=== PATIENT | female | born 2000 | race African-American/Black ===

== ENCOUNTER 2021-12-17 12:18 | Emergency (ER) | payer OTHER, SELFPAY ==
[2021-12-17 12:24] VITALS: BP 132/76; PULSE 90; RESP 16; TEMP 36.6; O2SAT 100
[2021-12-17 13:20] VITALS: RESP 18; O2SAT 98
--- NOTE | 2021-12-17 13:25 | PC.NURSE ---
patient states that she slept most of the day yesterday. denies eating anything out of the ordinary and no new medications. states she woke up feeling a little congested and puffy. I may have allergies, I don't know
[2021-12-17] MEDS: methylPREDNISolone SOD SUCC 125 MG VIAL IV PUSH (13:49)
[2021-12-17] MEDS: SODIUM CHLORIDE 0.9% IV 1,000 ML 999 ML IV CONT (13:49)
[2021-12-17] MEDS: LORATADINE 10 MG TABLET PO (13:49)
[2021-12-17] MEDS: FAMOTIDINE 20 MG/2 ML VIAL IV PUSH (13:49)
[2021-12-17] MEDS: diphenhydrAMINE HCl INJ 50 MG/ML VIAL 25 MG IV PUSH (13:49)
--- NOTE | 2021-12-17 14:52 | ED.ALLEREA ---
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 Patient states she is seen previously for the same issues and was told she was allergic to the cat. Patient has not had any contact with a cat. Today patient was driving when she started itching her left arm and then noted the hives. This was about 1030 this morning at time of assessment patient states she is doing better but still feels like she is short of breath and is having problems swallowing. Patient speaking in full sentences without difficulty. Patient denies any new soaps, lotions, foods, or detergents. Patient does not take any medications on a daily basis. Related Data Allergies Allergy/AdvReac Type Severity Reaction Status Date / Time No Known Allergies Allergy Verified 12/17/21 13:20 Review of Systems Review of Systems: CONSTITUTIONAL: Denies fever, chills, or sweats. EYES: Denies visual changes, redness, or discharge. ENT: Denies rhinorrhea, congestion, sore throat, or otalgia. CARDIOVASCULAR: Denies chest pain, palpitations, or edema. RESPIRATORY: Dyspnea. denies cough or dyspnea. GASTROINTESTINAL: Denies abdominal pain, nausea, vomiting, or diarrhea. GENITOURINARY: Denies dysuria or hematuria. SKIN: Hives. MUSCULOSKELETAL: Denies back pain, joint pain, or myalgia. NEUROLOGIC: Denies headache, numbness, dizziness, or weakness. PSYCHIATRIC: Denies anxiety or depression. Exam Narrative: GENERAL: Well-appearing, well-nourished, and in no acute distress. HEAD: Normocephalic, atraumatic. EYES: PERRLA and EOMI. ENT: Nares clear, no rhinorrhea or epistaxis. Mucous membranes moist. Oropharynx without tonsillar hypertrophy exudate or other lesions. No pharyngeal edema noted. Bilateral TMs pearly zabala nonbulging NECK: Supple. No adenopathy or masses. No carotid bruits or JVD CHEST: Clear to auscultation. No respiratory distress. No wheezes rales or rhonchi HEART: Regular rate and rhythm. No murmur heard. Normal peripheral pulses. ABDOMEN: Soft, nontender, nondistended, normal active bowel sounds. EXTREMITIES: Normal range of motion. No edema. SKIN: wheels noted to left arm. Warm, dry, no rash. NEURO: No focal deficits. Alert and oriented x3. PSYCH: Normal mood and affect. Course Course Emergency Course: Patient with noted improvement after IV medications. Patient denies shortness of breath, difficulty swallowing after medications. Patient ready to be discharged home. Patient be discharged home on oral steroids, Zyrtec, and Pepcid. Instructed to follow-up with primary for possible referral to veterinary medicine scientist. Vital Signs Vital signs: Vital Signs Temperature 36.6 C 12/17/21 12:24 Pulse Rate 90 12/17/21 12:24 Respiratory Rate 16 12/17/21 12:24 Blood Pressure 132/76 12/17/21 12:24 Pulse Oximetry 100 12/17/21 12:24 Temperature 36.6 C 12/17/21 12:24 Pulse Rate 64 12/17/21 15:16 Respiratory Rate 14 12/17/21 15:16 Blood Pressure 135/82 12/17/21 15:16 Pulse Oximetry 100 12/17/21 15:16 MDM - Allergic Reaction Differential Diagnosis Differential diagnosis: Likely anaphylaxis, allergic reaction and urticaria Medical Records Attestation: I reviewed the patient's medical records. Discharge Plan Discharge Clinical Impression: Urticaria, Allergic reaction Patient Disposition: Home, Self-Care Condition: Improved Instructions: Antibiotic Form, Urticaria (ED), Allergies (ED) Additional Instructions: Take medications as prescribed. Follow-up with primary for possible referral to an veterinary medicine scientist. Return with any new or worsening symptoms. Prescriptions: New prednisone 50 mg tablet 50 mg
[2021-12-17] MEDS: ONDANSETRON INJ 4 MG/2 ML VIAL IV PUSH (15:02)
[2021-12-17 15:16] VITALS: BP 135/82; PULSE 64; RESP 14; O2SAT 100
== END 2021-12-17 15:38 | disposition home or self-care (01) ==
PROVIDERS: Emergency Provider Nurse Practitioner Family; PCP Family Medicine
DX: L50.0 Allergic urticaria (principal)
CPT/HCPCS: 96361; 96374; 96375; 99284; A9270; J1200; J2405; J2930; J7030

== ENCOUNTER 2023-05-24 19:14 | Emergency (ER) | payer OTHER, SELFPAY ==
--- NOTE | ~2023-05-24 | US_ITS ---
US OB <=14 wk fetus w TV DATE: 05/24/2023 21:49 INDICATION: Vaginal bleeding for 3 days, abdominal cramping TECHNIQUE: Real-time and Doppler analysis via transabdominal and transvaginal approaches COMPARISON: None FINDINGS: The uterus measures 8.9 cm height, up to 3.9 cm anteroposterior dimension. There is a normally shaped intrauterine gestational sac with surrounding hyperechogenicity consistent with normal decidual reaction. Yolk sac is identified. Probable pole noted with crown-rump licha gth of 0.37 cm suggesting 6 weeks 0 days estimated gestational age. cardiac activity is not def initively demonstrated. Recommend short-term follow-up ultrasound imaging No ovarian or adnexal mass lesion is detected. Vascular flow to both ovaries is noted. No evidence of ovarian torsion. Small free pelvic fluid collection may be physiologic. IMPRESSION: Early intrauterine gestation with suggestion of 6 weeks estimated gestational age based u mohit crown-rump length of 0.37 cm cardiac motion is not definitively demonstrated; recommend short-term follow-up ultrasound imag ing. Reviewed, dictated and finalized at [facility] Reviewed, dictated and finalized at [facility]. IMPRESSION: Early intrauterine gestation with suggestion of 6 weeks estimated g estational age based upon crown-rump length of 0.37 cm cardiac motion is not definitively demonstrated; recommend short-term fol low-up ultrasound imaging.
[2023-05-24 19:16] VITALS: BP 128/80; PULSE 97; RESP 16; TEMP 36.6; O2SAT 100
--- NOTE | 2023-05-24 19:48 | ED.FEMALEGU ---
HPI - Female Genitourinary General Chief complaint: Vaginal Bleeding Stated complaint: Vaginal Bleeding, 5 weeks Time Seen by Provider: 05/24/23 19:48 History of Present Illness HPI Narrative: Patient is a 22-year-old female estimated 5 weeks by last menstrual. Here with vaginal bleeding and pelvic pain. Patient states that 2 days ago, dark brown in color associated with pelvic cramping. Yesterday she had noted worse breast pain than usual so she went and bought some tests. She took 3 tests, all of which were positive. She notes that about 30 minutes prior to arrival she had increased bleeding, now bright blood in color and has some associated worsening cramping. she has not passed any tissue that she is aware of. She is scheduled for an OBGYN appointment already on 05/26 to establish care. She has not had an ultrasound to confirm intrauterine . She has one partner, no condom/contraceptive use as partner has been told in the past that he is infertile. No concern for STD, no vaginal discharge before bleeding began. No light headedness or shortness of breath. No known blood disease. No urinary symptoms. Related Data Home Medications Medication Instructions Recorded Confirmed No Home Medications 05/24/23 05/24/23 Allergies Allergy/AdvReac Type Severity Reaction Status Date / Time No Known Allergies Allergy Verified 05/24/23 19:45 Review of Systems Review of Systems: CONSTITUTIONAL: Denies fever, chills, or sweats. CARDIOVASCULAR: Denies chest pain, palpitations, or edema. RESPIRATORY: Denies cough or dyspnea. GASTROINTESTINAL: abdominal pain, denies nausea, vomiting, or diarrhea. GENITOURINARY: Denies dysuria or hematuria. vaginal bleeding, pelvic pain. MUSCULOSKELETAL: Denies back pain, joint pain, or myalgia. NEUROLOGIC: Denies headache, numbness, or weakness. Exam Narrative: GENERAL: Well-appearing, well-nourished, and in no acute distress. HEAD: Normocephalic, atraumatic. EYES: PERRLA and EOMI. ENT: Nares clear. Mucous membranes moist. NECK: Supple. CHEST: Clear to auscultation. No respiratory distress. HEART: Regular rate and rhythm. Normal peripheral pulses. ABDOMEN: Soft, nontender, nondistended. : (Exam performed with RN as combiner operator) Blood with clots present in the vaginal vault, clears with celeste swab. Clot present in the cervical os, removed with ring forceps. No obvious tissue appreciated. Closed os. No adnexal tenderness. EXTREMITIES: Normal range of motion. No edema. SKIN: Warm, dry, no rash. NEURO: No focal deficits. Alert and oriented x3. PSYCH: Normal mood and affect. Course Course Emergency Course: Chart review performed. Patient is approximately 5 weeks , has a follow-up appointment with OBGYN on Friday. She has had vaginal bleeding for the last 2 days. Triage vitals within normal limits. Patient seen evaluated. Remained with her in the room, patient agrees to discussion and evaluation with her friend in the room. She is here with 1st trimester bleeding. No confirmed intrauterine outpatient. We will do basic labs, type and screen, Rh factor, UA, pelvic exam, transvaginal ultrasound. Ultrasound to be called in to perform rule out ectopic exam. Bleeding mild to moderate in nature. Lab work reviewed, UA does not appear to be consistent with UTI, no bacteria seen. Electrolytes within normal limits, hemoglobin stable. Awaiting Ultrasound, hcg and RH. Blood type B positive. No need for rhogam. HCG 17,845. Awaiting ultrasound. Ultrasound shows intrauterine gestational sac with yolk sac and possible pole, no heart flutter noted. Normal vascular flow to bilateral ovaries. Patient updated on results. Will discharge with threatened miscarriage precautions. Advised to keep her follow up appointment in 2 days with OBGYN. The results of pertinent diagnostic studies and exam findings were discussed. The souleymane
[2023-05-24 20:06] LABS: Basophils Percent Auto 0.4 % (0.2-1.2); Eosinophils Absolute Auto 0.1 K/mm3 (0-0.3); Hematocrit 39.1 % (37.0-47.0); Hemoglobin 13.7 g/dL (12.0-15.0); Immature Granulocyte Absolute 0.01 K/mm3 (0.00-0.031); Immature Granulocyte Percent A 0.1 % (0-0.5); Mean Corpuscular Hemoglobin 28.3 pg (26-34); Mean Corpuscular Volume 80.8 fl (80-100); Mean Platelet Volume 8.4 fl (7.4-10.4); Monocytes Absolute Auto 0.8 K/mm3 (0.1-0.6); Monocytes Percent Auto 11.5 % (2.6-8.5); Neutrophils Absolute Auto 3.5 K/mm3 (1.3-6.7); Platelet Count Result 372 k/mm3 (150-375); Red Blood Count 4.84 M/mm3 (4.2-5.4); Red Cell Distribution Width 13.3 % (11.5-14.5); White Blood Count 7.1 K/mm3 (4.5-10.0)
[2023-05-24 20:15] LABS: Alanine Aminotransferase 26 U/L (6-35); Albumin Level 4.3 g/dL (3.5-5.1); Alkaline Phosphatase 42 U/L (38-126); Anion Gap 1 mmol/L (8-16); Aspartate Amino Transferase 30 U/L (14-36); Bilirubin,Total 0.4 mg/dL (0.2-1.3); Blood Urea Nitrogen 15 mg/dL (7-17); Calcium 9.5 mg/dL (8.4-10.2); Carbon Dioxide 29 mmol/L (22-30); Chloride 103 mmol/L (98-107); Estimated CRCL calculation 88 ml/min; Estimated Glomerular Filt Rate > 60; Glucose 89 mg/dL (65-110); Potassium 3.8 mmol/L (3.4-5.0); Sodium 133 mmol/L (137-145)
[2023-05-24 20:19] LABS: Appearance Urine Cloudy (Clear); Bacteria Urine None Seen /hpf; Bilirubin Urine Negative (Negative); Blood Urine 3+ (Negative); Color Urine Dark Yellow (Yellow); Glucose Urine UA Negative (Negative); Ketones Urine Trace mg/dL (Negative); Leukocyte Esterase Ur Trace LEU/UL (Negative); Nitrate Urine Negative (Negative); Non Pathogenic Casts 0-2; Protein Urine 1+ mg/dL (Negative); RBC Urine >100 /hpf (0-2); Squamous Epithelial Cell Urine None seen /hpf (Few); WBC Urine 0-5 /hpf; pH Urine 5.5 (5.0-9.0)
[2023-05-24 20:23] LABS: Specific Grav Ur 1.038 (1.001-1.035)
[2023-05-24 20:24] LABS: Add Urine Microscopic? YES
--- NOTE | 2023-05-24 20:56 | PC.NURSE ---
Patient taken to US via w/c at this time.
[2023-05-24 22:01] VITALS: BP 116/57; PULSE 66; RESP 17; O2SAT 100
== END 2023-05-24 23:04 | disposition home or self-care (01) ==
PROVIDERS: Emergency Provider Student in an Organized Health Care Education/Training Program
DX: O20.0 Threatened abortion (principal); Z3A.01 Less than 8 weeks gestation of pregnancy
CPT/HCPCS: 36415; 76801; 76817; 80053; 81001; 81025; 84702; 85025; 85461; 86850; 86900; 86901; 87491; 87591; 87661; 99284